=== PATIENT | male | born 1965 ===

== ENCOUNTER 2016-08-03 17:53 | Emergency (ER) | payer OTHER ==
[2016-08-03 18:38] VITALS: BP 184/119; PULSE 80; RESP 14; TEMP 97.9; O2SAT 97
--- NOTE | 2016-08-03 19:03 | UCPHY ---
H & P Patient Type: New Chief Complaint Nursing Narrative: lightheadedness, headache, ruptured blood vessel right eye, ear pressure, dyspnea for 2 days. Time Seen by Provider: 08/03/16 18:42 HPI/ROS: CHIEF COMPLAINT: Hypertension HISTORY OF PRESENT ILLNESS: The patient is a 50-year-old man who comes to the Urgent Care complaining of hypertension. He states that he has had hypertension consistently for the last year or two but tends to ignore it. Today it was 180/111. He occasionally has scleral hematomas. He states that he has a high stress job and is a type a personality. He does not take any medications. He is here requesting to start blood pressure medicine. He does not have a primary care doctor. He does not have a headache, chest pain, shortness of breath or Nausea or vomiting. no vision changes, visual acuities taken and normal. No recent trauma or infection. REVIEW OF SYSTEMS: Constitutional: See HPI EENTM: See HPI denies: blurred vision, double vision, nose congestion Respiratory: denies: cough, shortness of breath Cardiac: denies: chest pain, irregular heart rate, lightheadedness, palpitations Gastrointestinal/Abdominal: denies: abdominal pain, diarrhea, nausea, vomiting, blood streaked stools Genitourinary: denies: dysuria, frequency, hematuria, pain Musculoskeletal: denies: joint pain, muscle pain Skin: denies: lesions, rash, jaundice, bruising Neurological: denies: headache, numbness, paresthesia, tingling, dizziness, weakness Hematologic/Lymphatic: denies: blood clots, easy bleeding, easy bruising Immunologic/allergic: denies: HIV/AIDS, transplant EXAM: GENERAL: Well-appearing, well-nourished and in no acute distress. HEAD: Atraumatic, normocephalic. EYES: small scleral hematoma in corner of right eye, no visible foreign body. Pupils equal round and reactive to light, extraocular movements intact, sclera anicteric. ENT: TMs normal, nares patent, oropharynx clear without exudates. Moist mucous membranes. NECK: Normal range of motion, supple without lymphadenopathy or JVD. LUNGS: Breath sounds clear to auscultation bilaterally and equal. No wheezes rales or rhonchi. HEART: Regular rate and rhythm without murmurs, rubs or gallops. ABDOMEN: Soft, nontender, normoactive bowel sounds. No guarding, no rebound. No masses appreciated. BACK: No CVA tenderness, no spinal tenderness, step-offs or deformities EXTREMITIES: Normal range of motion, no pitting or edema. No clubbing or cyanosis. NEUROLOGICAL: Cranial nerves II through XII grossly intact. Normal speech, normal gait. 5/5 strength, normal movement in all extremities, normal sensation PSYCH: Normal mood, normal affect. SKIN: Warm, dry, normal turgor, no visible rashes or lesions. Source: Patient Exam Limitations: No limitations - Personal History Current Tetanus Diphtheria and Acellular Pertussis (TDAP): Unsure - Medical/Surgical History Hx Asthma: Yes Hx Chronic Respiratory Disease: No Hx Diabetes: No Hx Cardiac Disease: No Hx Renal Disease: No Hx Cirrhosis: No Hx Alcoholism: Yes Hx HIV/AIDS: No Hx Splenectomy or Spleen Trauma: No Other PMH: ETOH abuse 30 years ago, hypertension,kyphosis,ortho surgeries, hernia repair - Family History Significant Family History: No pertinent family hx - Social History Smoking Status: Former smoker Alcohol Use: Sober Drug Use: None Constitutional: Initial Vital Signs Temperature (C) 36.6 C 08/03/16 18:31 Heart Rate 80 08/03/16 18:31 Respiratory Rate 14 08/03/16 18:31 Blood Pressure 184/119 H 08/03/16 18:31 O2 Sat (%) 97 08/03/16 18:31 O2 Delivery Mode Room Air Allergies/Adverse Reactions: No Known Allergies Allergy (Unverified 08/03/16 18:29) Home Medications: Medication Instructions Recorded Hydrochlorothiazide [HCTZ (*)] 25 mg PO DAILY #30 tab 08/03/16 Medical Decision Making ED Course/Re-evaluation: Patient has a concerned about his hypertension has as a small scleral hematoma. No other significant symptoms. he states that he tried a antihypertensive several years ago but did not like the side effects. He states that it made him feel lightheaded. I will start him on hydrochlorothiazide and have him follow up with 1 of our internal medicine physicians. He is happy with this plan and declines further workup or testing at this time. He again denies chest pain or shortness of breath. We discussed indications for returning as well. Additional verbal discharge instructions given. Differential Diagnosis: Partial list of the Differential diagnosis considered include but were not limited to; hypertension, anxiety, scleral hematoma and although unlikely based on the history and physical exam, I also considered foreign body, infection, arrhythmia, acute coronary disease, aneurysm. I discussed these differential diagnoses and the plan with the patient as well as the usual and expected course. The patient understands that the diagnosis is provisional and that in medicine we are not always correct and that further workup is often warranted. Usual and customary warnings were given. All of the patient's questions were answered. The patient was instructed to return to the emergency department should the symptoms at all worsen or return, otherwise to followup with the physician as we discussed. Departure - Departure Disposition: Home, Routine, Self-Care Clinical Impression: Hypertension Qualifiers: Hypertension type: essential hypertension Qualifier Code: (I10) Essential ( primary) hypertension Scleral hemorrhage Qualifiers: Laterality: right Qualifier Code: (H11.31) Conjunctival hemorrhage, right eye Condition: Fair Instructions: Hypertension (ED), Hydrochlorothiazide (By mouth) Referrals: NONE *PRIMARY CARE P,. [Primary Care Provider] - As per Instructions Jadiel Cazares DO [Medical Doctor] - As per Instructions Prescriptions: Hydrochlorothiazide [HCTZ (*)] 25 mg PO DAILY #30 tab - PQRS PQRS Measurement: Not applicable
[2016-08-03] MEDS ORDERED: HYDROCHLOROTHIAZIDE 25 MG TAB PO SCH (19:30)
== END 2016-08-03 19:25 | disposition home or self-care (01) ==
LOC: CED 17:53
DX: I10 Essential (primary) hypertension (principal); H11.31 Conjunctival hemorrhage, right eye; Z87.891 Personal history of nicotine dependence
CPT/HCPCS: 99204-PO; G0463-PO